=== PATIENT | female | born 1940 | race Caucasian/White ===

== ENCOUNTER 2017-11-20 13:25 | Inpatient (IN) | payer OTHER ==
[~2017-11-20] VITALS: Ht 162.6 cm; Wt 73.6 kg
--- NOTE | 2017-11-20 14:45 | ED SYNCOPE COMPLAINT ---
See Addendum History of Present Illness General Chief Complaint: Syncope and Near-Syncope Stated Complaint: SYNCOPE, LIGHTHEADED Source: patient, family Exam Limitations: no limitations Vital Signs & Intake/Output Vital Signs & Intake/Output Vital Signs Date Time Temp Pulse Resp B/P B/P Pulse O2 O2 Flow FiO2 Mean Ox Delivery Rate 11/20 2000 98.2 86 16 129/80 97 Room Air 11/20 1724 78 172/91 11/20 1723 96.2 78 18 172/91 98 Room Air 11/20 1511 98.3 80 18 142/81 96 Room Air 11/20 1415 98.5 80 16 144/88 97 Room Air Allergies Coded Allergies: Iodinated Contrast- Oral and IV Dye (Severe, VOMITING 11/20/17) Reconcile Medications Amlodipine Besylate 5 MG TABLET 1 TAB PO DAILY HEART (Reported) Levothyroxine Sodium 50 MCG TABLET 1 TAB PO DAILY AC THYROID (Reported) Lisinopril 20 MG TABLET 1 TAB PO DAILY HEART (Reported) Triage Note: 77 Y/O FEMALE C/O ? SYNCOPE THIS MORNING. STATES SHE WAS IN BATHROOM WHEN SHE HAD DIFFUSE ABDOMINAL PAIN AND CRAMPING, THEN FELT "CLAMMY" AND "I THINK I PASSED OUT". WAS GUIDED TO GROUND BY . PT STATES SHE CONTINUES TO FEEL "FOGGY". DENIES ACUTE PAIN,. DENIES N/V/D. EKG COMPLETED PRIOR TO TRIAGE TAKEN TO ROOM 1 FOR EVAL Triage Nurses Notes Reviewed? yes Timing: no prior history Precipitating Factors: diaphoresis Context: sitting on toilet Loss of Consciousness: brief (seconds) HPI: Patient is a 77-year-old female with history of hypertension, hypothyroid presenting to the emergency department with chief complaint syncopal episode that happened just prior to arrival. She was urinating on the toilet when she experienced intense abdominal pain which then caused diaphoresis and her to pass out. She reports that she lost consciousness for a few seconds and fell to the floor. Her tried to catch her without success. Patient presents she feels "foggy". Denies visual changes. Denies any chest pain or palpitations prior to onset of syncope. No history of similar symptoms in the past. Patient denies any nausea or vomiting. Patient denies any current abdominal pain. She reports that she's been dealing with abdominal pain for several months but has not told her primary care physician about it. Just has remote history of left breast cancer. Denies any recent changes with prescription lenses. She reports that she has been feeling "under the weather" for several months with abdominal pain and just not feeling like herself. Denies any recent coughing or congestion. Denies any burning with urination frequency or urgency. No recent diarrhea. (Emilia Antoine) Past History Travel History Traveled to [place] past 21 day No Medical History Any Pertinent Medical History? see below for history Neurological: NONE EENT: NONE Cardiovascular: hypertension, hyperlipidemia Respiratory: NONE Gastrointestinal: NONE Hepatic: NONE Renal: NONE Musculoskeletal: NONE Psychiatric: NONE Endocrine: hypothyroidism Cancer(s): breast cancer Surgical History Surgical History: non-contributory Psychosocial History What is your primary language Micronesian Tobacco Use: Never used Family History Hx Contributory? No (Emilia Antoine) Review of Systems Review of Systems Constitutional: Reports: diaphoresis. Comments Review of systems: See HPI, All other systems negative. Constitutional, no chills fever or weight loss HEENT: No visual changes no sore throat no congestion Cardiovascular: No chest pain ,palpitation , orthopnea or ankle swelling Skin, no jaundice no rashes Respiratory: No dyspnea cough sputum or hemoptysis GI: No nausea no vomiting : No dysuria No hematuria Muscle skeletal: no back pain, no neck pain, Neurologic: No numbness Psych: No stress anxiety or depression,. Heme/endocrine: No bruising no bleeding no polyuria or polydipsia Immunology: No splenectomy or history of AIDS (Emilia Antoine) Physical Exam Physical Exam General Appearance: well developed/nourished, no apparent distress, alert, awake , comfortable Cranial Nerves: cranial nerves II through XII grossly intact. Comments: Well-developed well-nourished person in no acute distress HEENT: Normal EENT exam, extraocular motion intact, no nystagmus. Pupils equally round and reactive to light and accommodation. Nose is atraumatic. External auditory canal and Tympanic membranes clear. Pharynx normal. No swelling or edema. No hemotympanum noted bilaterally. No pain to palpation over entire scalp. No bogginess or step off deformities palpated. Neck: Supple, no lymphadenopathy, normal range of motion without pain or tenderness, no cervical or paraspinal muscle tenderness on exam. Back: Nontender, negative straight leg raise bilaterally. Cardiovascular: Regular rate and rhythms, no murmurs appreciated to auscultation Respiratory: Chest nontender. No respiratory distress.breath sounds clear to auscultation bilaterally Abdomen: Soft, nontender nondistended, no appreciable organomegaly. Normal bowel sounds. No ascites, no rebound or guarding. Extremity: No edema, no calf tenderness to palpation, normal and equal pulses. Full range of motion of upper extremities without difficulties or pain. 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 Muscular strength in the lower extremity is located on the stretcher is 5 out of 5. Neuro: Alert oriented x3, motor sensory normal, cranial nerves II through XII grossly intact. Patellar reflexes are 2+ bilaterally. Skin: No appreciable rash on exposed skin, skin is warm and dry. Psych: Mood and affect is normal, memory and judgment is normal. Core Measures ACS in differential dx? Yes CVA/TIA Diagnosis: No Sepsis Present: No Sepsis Focused Exam Completed? No (Jaimee SILVERMAN,Emilia) Progress Differential Diagnosis: orthostatic hypotension, vasovagal episode, and actually abnormality,, TIA, CVA Plan of Care: Orders Procedure Date/time Status Heart Healthy Diet 11/21 B Active MAGNESIUM 11/21 0600 Active CBC WITHOUT DIFFERENTIAL 11/21 0600 Active BASIC ELECTROLYTES PLUS BUN&CR 11/21 0600 Active Regular Diet 11/20 D Complete Pathway - chart 11/20 1923 Active House Staff 11/20 1923 Active Patient Data 11/20 1748 Active ED Holding Orders 11/20 1733 Active Admit to inpatient 11/20 1733 Active Code Status 11/20 1733 Active Add-on Test (ER Only) 11/20 1658 Active TSH REFLEX 11/20 1452 Active GLYCOSYLATED HGB 11/20 1452 Active VITAMIN B12 11/20 1452 Active Add-on Test (ER Only) 11/20 1445 Active MISTAKE 11/20 1445 Active Telemetry/Pictures Editor 11/20 1445 Active Intake & Output 11/20 1443 Active TROPONIN LEVEL 11/20 1420 Active PARTIAL THROMBOPLASTIN TIME 11/20 1420 Complete PROTHROMBIN TIME 11/20 1420 Complete LACTIC ACID 11/20 1420 Active D-DIMER 11/20 1420 Complete COMPREHENSIVE METABOLIC PANEL 11/20 1420 Active CBC WITHOUT DIFFERENTIAL 11/20 1420 Complete EKG 11/20 1327 Active Lab Add-on Test 11/20 UNK Active VTE Mechanical Prophylaxis 11/20 UNK Active Vital Signs 11/20 UNK Active Current Medications Sig/Mike Start time Last Medication Dose Stop Time Status Admin Enoxaparin Sodium 40 MG DAILY 11/21 0900 AC (Lovenox) Acetaminophen 650 MG Q6P PRN 11/20 1915 AC (Tylenol) Laboratory Tests 11/20/17 1452: Anion Gap 11, Estimated GFR > 60, BUN/Creatinine Ratio 31.7 H, Glucose 106 H, Hemoglobin A1c Pending, Lactic Acid 0.6 L, Calcium 9.0, Total Bilirubin 0.4, AST 11 L, ALT 19, Alkaline Phosphatase 75, Troponin I < 0.01, Total Protein 6.6 , Albumin 3.6, Globulin 3.0, Albumin/Globulin Ratio 1.2, Vitamin B12 Pending, TSH &T3 &Free T4 Intrp 2.980, PT 12.1, INR 1.11, APTT 28, D-Dimer High Sensitivty < 200, CBC w Diff NO MAN DIFF REQ, RBC 4.11 L, MCV 86.0, MCH 28.7, MCHC 33.4, RDW 13.6, MPV 9.9, Gran % 79.4 H, Lymphocytes % 14.3 L, Monocytes % 5.5, Eosinophils % 0.6, Basophils % 0.2, Absolute Granulocytes 8.0 H, Absolute Lymphocytes 1.4, Absolute Monocytes 0.6, Absolute Eosinophils 0.1, Absolute Basophils 0 11/20/2017 5:50:48 PM patient is well-appearing at this time resting comfortably. Patient still asymptomatic. Patient and family members informed of all lab results and imaging study results. Due to the unclear nature of syncopal event patient will be admitted to telemetry for syncope. Arvind Ramírez DO spoke with Dr. Miller. Orthostatics are negative at this time. Diagnostic Imaging: Viewed by Me: Radiology Read, CT Scan. Discussed w/RAD: Radiology Read, CT Scan. Radiology Impression: PATIENT: MIRIAM JOHNSON PRESENT AGE: 77 PATIENT ACCOUNT NO: [id number] : 39 LOCATION: [facility] ORDERING PHYSICIAN: Emilia SILVERMAN SERVICE DATE: 11/20/17 EXAM TYPE: RAD - XRY-PORTABLE CHEST XRAY EXAMINATION: XR PORTABLE CHEST CLINICAL INFORMATION: Syncope. Question of cardiomegaly. COMPARISON: Chest x-ray 03/21/2013 TECHNIQUE: Portable frontal view of the chest was obtained. 2:48 PM FINDINGS: The heart size is normal. The cardiac and mediastinal contours are unchanged. There is vascular wall calcifications of aortic arch. There is no acute abnormality. There is no pulmonary vascular congestion. Lungs are clear. There is no pleural effusion or pneumothorax. There are surgical clips in the left axilla. IMPRESSION: No acute abnormality of the chest. The heart size is normal. DICTATED BY: Jeremy Artis MD DATE/TIME DICTATED:11/20/171527 SUPERVISORY TRAINING SPECIALIST :MÓNICA DATE/TIME TRANSCRIBED:11/20/171527 CONFIDENTIAL, DO NOT COPY WITHOUT APPROPRIATE AUTHORIZATION. <Electronically signed in Other Vendor System> SIGNED BY: Jeremy Artis MD 11/20/17 153, PATIENT: MIRIAM JOHNSON PRESENT AGE: 77 PATIENT ACCOUNT NO: [id number] : LOCATION: [facility] ORDERING PHYSICIAN: Emilia SILVERMAN SERVICE DATE: 11/20/17 EXAM TYPE: CAT - CT CERV SPINE WO IV CONTRAST; CT HEAD WO IV CONTRAST EXAMINATION: CT HEAD AND CERVICAL SPINE. CLINICAL INFORMATION: Fall with head strike. Evaluate for acute intracranial hemorrhage. COMPARISON: No relevant prior imaging. TECHNIQUE: Coal Passer images were obtained. CT acquisition of the head and cervical spine was performed without intravenous administration of contrast. Data was reformatted into multiplanar images at the acquisition workstation. DLP: 910.97 mGy-cm. FINDINGS: Head: There is no acute intracranial hemorrhage or abnormal extra-axial collection. No intracranial mass effect or midline shift. Lateral and third ventricles are normal. No hydrocephalus. Rodríguez- white matter differentiation is grossly preserved and there is no evidence of acute territorial infarct. The calvarium and skull base are intact. Mastoid air cells and middle ear cavities are well aerated. Visualized paranasal sinuses are well aerated. Cervical spine: There is nonspecific straightening of the cervical lordosis. Alignment is otherwise normal. Vertebral heights are preserved. There is no acute fracture. No abnormal prevertebral soft tissue swelling. There is slight loss of intervertebral disc height with associated disc osteophyte spurring at levels of C5-C6 and C6-C7. No canal compromise. No substantial bony neuroforaminal encroachment. Coarse tonsillar crypt calcifications are noted. Small amount of calcified atherosclerotic plaque is also visualized at the carotid bifurcations. Lung apices are clear. IMPRESSION: Head: No acute cranial hemorrhage. Cervical spine: No acute cervical spine fracture. DICTATED BY: Adam Lopez MD DATE/TIME DICTATED:11/20/171546 SUPERVISORY TRAINING SPECIALIST: MÓNICA DATE/TIME TRANSCRIBED:11/20/171546 CONFIDENTIAL, DO NOT COPY WITHOUT APPROPRIATE AUTHORIZATION. <Electronically signed in Other Vendor System> SIGNED BY: Adam Lopez MD 11/20/17 1558 Initial ED EKG: sinus rhythm at 78 per minute, probable anteroseptal infarct Prior EKG: unchanged (Emilia Antoine) Departure Departure Time of Disposition: 1727 Disposition: HOME OR SELF CARE Condition: Stable Clinical Impression Primary Impression: Syncope Qualifiers: Syncope type: unspecified Qualified Code: R55 - Syncope and collapse Referrals: Prateek Miller MD (PCP/Family) Departure Forms: Customer Survey General Discharge Information Admission Note Spoke With: Prateek Miller MD Documentation of Exam: Documentation of any treatments & extenuating circumstances including Concerns Regarding Discharge (functional status, medication knowledge or non-compliance, living conditions, etc.) that warrant an admission rather than observation: Patient requiring telemetry monitoring, serial EKGs and troponins, cardiology consultation, patient may require carotid Dopplers, discharge at this time is medically harmful due to likely have worsening symptoms or symptoms Again. Patient may need neurology consultation. May need Holter monitor upon discharge. Pending CT abdomen at this time. (Emilia Antoine) PA/FIELD GAUGER Co-Sign Statement Statement: ED Attending supervision documentation- [x] I saw and evaluated the patient. I have also reviewed all the pertinent lab results and diagnostic results. I agree with the findings and the plan of care as documented in the PA's/FIELD GAUGER's documentation. [] I have reviewed the ED Record and agree with the PA's/FIELD GAUGER's documentation. [] Additions or exceptions (if any) to the PAs/FIELD GAUGER's note and plan are summarized below: [] Patient seen and examined. Near syncopal episode. Admission to telemetry (Arvind Ramírez DO) Critical Care Note Critical Care Note Critical Care Time: 30-74 min (Jaimee SILVERMAN,Emilia)
[2017-11-20] MEDS ORDERED: LEVOTHYROXINE50 MCG PO (15:00)
[2017-11-20] MEDS ORDERED: AMLODIPINE BESYL5 M1 PO (15:00)
[2017-11-20] MEDS ORDERED: LISINOPRIL20 M1 PO (15:01)
[2017-11-20 15:10] LABS: ABSOLUTE BASOPHIL COUNT 0 /CUMM (0.0-0.2); ABSOLUTE EOSINOPHIL COUNT 0.1 /CUMM (0.0-0.7); ABSOLUTE LYMPH COUNT 1.4 /CUMM (1.2-3.4); ABSOLUTE MONOCYTE COUNT 0.6 /CUMM (0.10-0.60); BASOPHIL % 0.2 % (0.0-2.0); EOSINOPHIL % 0.6 % (0-5); GRANULOCYTE % 79.4 % (42.2-75.2); HEMATOCRIT 35.4 % (37-47); MEAN CORPUSCULAR HGB 28.7 PG (27.0-31.0); MEAN CORPUSCULAR HGB CONC 33.4 G/DL (33.0-37.0); MEAN PLATELET VOLUME 9.9 FL (7.4-10.4); PLATELET COUNT 222 /CUMM (130-400); PT 12.1 SEC (9.4-12.5); PTT 28 SEC (25-37); RBC DISTRIBUTION WIDTH 13.6 % (11.5-14.5); RED BLOOD CELL CT 4.11 /CUMM (4.20-5.40); WHITE BLOOD CELL COUNT 10.1 /CUMM (4.8-10.8)
--- NOTE | 2017-11-20 15:33 | RADIOLOGY REPORT ---
EXAMINATION: XR PORTABLE CHEST CLINICAL INFORMATION: Syncope. Question of cardiomegaly. COMPARISON: Chest x-ray 03/21/2013 TECHNIQUE: Portable frontal view of the chest was obtained. 2:48 PM FINDINGS: The heart size is normal. The cardiac and mediastinal contours are unchanged. There is vascular wall calcifications of aortic arch. There is no acute abnormality. There is no pulmonary vascular congestion. Lungs are clear. There is no pleural effusion or pneumothorax. There are surgical clips in the left axilla. IMPRESSION: No acute abnormality of the chest. The heart size is normal.
--- NOTE | 2017-11-20 15:58 | CT SCAN REPORT ---
EXAMINATION: CT HEAD AND CERVICAL SPINE. CLINICAL INFORMATION: Fall with head strike. Evaluate for acute intracranial hemorrhage. COMPARISON: No relevant prior imaging. TECHNIQUE: Manufactured Buildings Repairer images were obtained. CT acquisition of the head and cervical spine was performed without intravenous administration of contrast. Data was reformatted into multiplanar images at the acquisition workstation. DLP: 910.97 mGy-cm. FINDINGS: Head: There is no acute intracranial hemorrhage or abnormal extra-axial collection. No intracranial mass effect or midline shift. Lateral and third ventricles are normal. No hydrocephalus. Rodríguez-white matter differentiation is grossly preserved and there is no evidence of acute territorial infarct. The calvarium and skull base are intact. Mastoid air cells and middle ear cavities are well aerated. Visualized paranasal sinuses are well aerated. Cervical spine: There is nonspecific straightening of the cervical lordosis. Alignment is otherwise normal. Vertebral heights are preserved. There is no acute fracture. No abnormal prevertebral soft tissue swelling. There is slight loss of intervertebral disc height with associated disc osteophyte spurring at levels of C5-C6 and C6-C7. No canal compromise. No substantial bony neuroforaminal encroachment. Coarse tonsillar crypt calcifications are noted. Small amount of calcified atherosclerotic plaque is also visualized at the carotid bifurcations. Lung apices are clear. IMPRESSION: Head: No acute cranial hemorrhage. Cervical spine: No acute cervical spine fracture.
--- NOTE | 2017-11-20 17:56 | CT SCAN REPORT ---
EXAMINATION: CT ABDOMEN AND PELVIS WITHOUT CONTRAST CLINICAL INFORMATION: Abdominal pain. COMPARISON: CT scan abdomen pelvis 08/08/2015 TECHNIQUE: Multidetector volumetric imaging was performed from the superior aspect of the liver through the pubic symphysis. Sagittal and coronal reformatted images were obtained on the technologist's workstation. DLP: 343.53 mGy-cm FINDINGS: LUNG BASES: The visualized lung bases are unremarkable. LIVER, GALLBLADDER, AND BILIARY TREE: Stable bilobed cyst in the upper right lobe of liver measuring 2.9 cm in diameter. There are multiple additional smaller scattered cysts in the liver as well that are stable. No suspicious liver lesion. Multiple calcified gallstones within the gallbladder. There is no bile duct dilatation. PANCREAS: Stable linear calcification in the mid body of the pancreas. No inflammation. No acute change of the pancreas. No pancreatic duct dilatation or cystic change. SPLEEN: Unremarkable. ADRENAL GLANDS: Unremarkable. KIDNEYS AND URETERS: Stable cyst in the right kidney. Largest measuring 6.6 cm at the upper pole. There are multiple parapelvic cysts in the left kidney. No renal or ureteral calculi. No hydronephrosis. BLADDER: Unremarkable. GASTROINTESTINAL TRACT: There is severe diverticulosis of the left colon and sigmoid. There are scattered diverticula in the right colon. There is no diverticulitis. There is no bowel wall thickening or edema. There is no bowel obstruction. There is a moderate to large-volume of stool throughout colon. The appendix is normal. The small bowel loops are unremarkable. There is a small hiatal hernia. ABDOMINAL WALL: No significant hernia is appreciated. LYMPH NODES: Normal. VASCULAR: Unremarkable. PELVIC VISCERA: The uterus is absent. There is no pelvic abnormality. OSSEOUS STRUCTURES: Degenerative spondylosis spine with multilevel disc height narrowing and endplate spurring and facet joint arthrosis. There is a vacuum disc phenomena L4-L5 with subchondral sclerosis of the endplates. There is a vertebral hemangioma in the body of the L4 vertebrae. IMPRESSION: 1. No acute abnormality CT scan abdomen pelvis. 2. There is marked diverticulosis of the colon but there is no acute abnormality of the bowel. 3. Cholelithiasis. 4. Renal and hepatic cysts.
--- NOTE | 2017-11-20 18:39 | History & Physical ---
Sunday BRUSH,José Miguel 11/20/17 3599: General Information and HPI History of Present Illness: 77-year-old woman with past medical history of hypertension, hypothyroidism, and breast cancer brought in by ambulance for evaluation after "passing out". Patient reports waking up this morning in her normal state of health where she went about her day and return home around noon and went to use the restroom. While urinating she developed acute onset 10/10 sharp diffuse abdominal pain. She felt "woozy" and clammy and suddenly "passed out". Her reportedly helped her to the ground; she did not hit her head or have any witnessed seizure activity. She awoke a short time later without any confusion. She denied any nausea, vomiting, or diarrhea during this episode. She was given an aspirin from a family member and taken to the [place] ED for further evaluation. Presently patient states that she "feels fine" and would like to go home. She denies any new or persistent complaints. Review of systems She otherwise denies any headache, fever, chills, light headedness, dizziness, blurred/double vision, chest pain, palpitations, heartburn, shortness breath, cough, nausea, vomiting, diarrhea, bowel/bladder issues. Allergies/Medications Allergies: Coded Allergies: Iodinated Contrast- Oral and IV Dye (Severe, VOMITING 11/20/17) Home Med list Amlodipine Besylate 5 MG TABLET 1 TAB PO DAILY HEART (Reported) Levothyroxine Sodium 50 MCG TABLET 1 TAB PO DAILY AC THYROID (Reported) Lisinopril 20 MG TABLET 1 TAB PO DAILY HEART (Reported) Past History Travel History Traveled to [place] past 21 day No Medical History Neurological: NONE EENT: NONE Cardiovascular: hypertension, hyperlipidemia Respiratory: NONE Gastrointestinal: NONE Hepatic: NONE Renal: NONE Musculoskeletal: NONE Psychiatric: NONE Endocrine: hypothyroidism Cancer(s): breast cancer Surgical History Surgical History: non-contributory Past Family/Social History Psychosocial History Where do you live? Home Review of Systems Review of Systems Constitutional: Reports: see HPI. Exam & Diagnostic Data Last 24 Hrs of Vital Signs/I&O Vital Signs Date Time Temp Pulse Resp B/P B/P Pulse O2 O2 Flow FiO2 Mean Ox Delivery Rate 11/20 1724 78 172/91 11/20 1723 96.2 78 18 172/91 98 Room Air 11/20 1511 98.3 80 18 142/81 96 Room Air 11/20 1415 98.5 80 16 144/88 97 Room Air Intake & Output 11/20 1600 11/20 0800 11/20 0000 Intake Total 0 Output Total Balance 0 Intake, Oral 0 Patient 70.76 kg Weight Weight Reported by Patient Measurement Method Physical Exam General Appearance Alert, Oriented X3, Cooperative, No Acute Distress Skin No Rashes, No Breakdown, No Significant Lesion Skin Temp/Moisture Exam: Warm/Dry Sepsis Skin Exam (color): Normal for Ethnicity HEENT Atraumatic, PERRLA, EOMI, Mucous Membr. moist/pink Neck Supple, No JVD, No thryomegaly Cardiovascular Regular Rate, Normal S1, Normal S2, No Murmurs Lungs Clear to Auscultation, Normal Air Movement Abdomen Normal Bowel Sounds, Soft, No Tenderness, No Hepatospenomegaly, No Masses Neurological Normal Speech, Strength at 5/5 X4 Ext, Normal Tone, Sensation Intact, Cranial Nerves 3-12 NL Extremities No Clubbing, No Cyanosis, No Edema, Normal Pulses, No Tenderness/ Swelling Vascular Normal Pulses, Pulses Symmetrical Last 24 Hrs of Labs/[place]: Laboratory Tests 11/20/17 1452: Anion Gap 11, Estimated GFR > 60, BUN/Creatinine Ratio 31.7 H, Glucose 106 H, Lactic Acid 0.6 L, Calcium 9.0, Total Bilirubin 0.4, AST 11 L, ALT 19, Alkaline Phosphatase 75, Troponin I < 0.01, Total Protein 6.6, Albumin 3.6, Globulin 3.0, Albumin/Globulin Ratio 1.2, TSH &T3 &Free T4 Intrp 2.980, PT 12.1, INR 1.11, APTT 28, D-Dimer High Sensitivty < 200, CBC w Diff NO MAN DIFF REQ, RBC 4.11 L, MCV 86.0, MCH 28.7, MCHC 33.4, RDW 13.6, MPV 9.9, Gran % 79.4 H, Lymphocytes % 14.3 L, Monocytes % 5.5, Eosinophils % 0.6, Basophils % 0.2, Absolute Granulocytes 8.0 H, Absolute Lymphocytes 1.4, Absolute Monocytes 0.6, Absolute Eosinophils 0.1, Absolute Basophils 0 Assessment/Plan Assessment: 77-year-old woman with multiple medical problems seen for evaluation after "passing out" after using the restroom. ED course -Vitals: Temp 96.2-98.5, HR 78-80, RR 16-18, SBP 142-172, O2 96-98% on room air -CBC: WBC 10.1, hemoglobin 11.8, hematocrit 35.4, platelet 222-BMP: Sodium 142, potassium 3.8, chloride 104, CO2 27, urea 19, creatinine 0.6, anion gap 11, glucose 106 -LFT: Within normal limits -Miscellaneous: Lactic acid 0.6, troponin I <0.01, TSH are 2.98, d-dimer <200, INR 1.1 -EKG: Sinus rhythm, HR 78, VA 156, QTC 447 -CT head/cervical spine without IV contrast: * Head:No acute cranial hemorrhage. * Cervical spine:No acute cervical spine fracture. -CXR: No acute abnormality of the chest -CT abdomen/pelvis without IV contrast: 1. No acute abnormality CT scan abdomen pelvis. 2. There is marked diverticulosis of the colon but there is no acute abnormality of the bowel. 3. Cholelithiasis. 4. Renal and hepatic cysts. Given patient's presentation after using the restroom and acute onset abdominal pain causing her to subsequently pass out she most likely suffered a vasovagal episode secondary to emptying of her bladder with concurrent Valsalva. On exam and lab studies she does not appear to be dehydrated but reports decreased oral intake recently due to her "hiatal hernia". Patient will need to follow-up with her small equipment operator Esa Garrison MD as an outpatient for further evaluation of this and potentially a repeat colonoscopy. Multiple imaging studies were unremarkable ruling out dangerous condition such as infection or vascular dissection. For further evaluation of patient's syncopal episode she is being admitted to the telemetry floor. Problem list -Loss of consciousness, probable vasovagal syncope -Marked colonic diverticulosis -Hypertension -Hypothyroidism Plan -Admit to telemetry -Check orthostatic vitals -Continue home meds amlodipine, lisinopril, and levothyroxine -Check B12 and HbA1c levels -Pain control with acetaminophen -Regular diet -DVT prophylaxis with Lovenox -Full code As Ranked By This Provider Problem List: 1. Syncope Qualifiers Syncope type: unspecified Qualified Code: R55 - Syncope and collapse Core Measures/Misc (04/26) Acute Coronary Syndrome ACS Diagnosis: No Congestive Heart Failure Congestive Heart Failure Diagnosis No Cerebrovascular Accident CVA/TIA Diagnosis: No VTE (View Protocol) VTE Risk Factors Age>40 No Mechanical VTE Prophylaxis d/t N/A MechProphylax Ordered No VTE Pharm Prophylaxis d/t NA PharmProphylax ordered Sepsis (View protocol) Sepsis Present: No Angela BRUSH,Prateek 11/20/171941: Attending MD Review Statement Attending Statement Attending MD Statement: examined this patient, discuss w/resident/PA/TABLE WORKER, agreed w/resident/PA/TABLE WORKER, discussed with family, reviewed EMR data (avail), discussed with nursing, discussed with case mgmt, reviewed images, amended to note Attending Assessment/Plan: examined independently in the emergency room Agree with the above This is a lady with the hypothyroidism after a previous thyroidectomy, hypertension, 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 history is as above. She has had extensive workup in the emergency room so for each been unrevealing. Issues include Syncope probably neurocardiogenic syncope with post-micturition Recent abdominal discomfort and a lady with hiatal hernia with postprandial abdominal discomfort. No clinical evidence suggestive of ischemic bowel disease. Patient does not have any significant peripheral vascular disease. 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 Other workup needs to be done RECOMMENDATION Admitted to telemetry Check vital signs Hold blood pressure medications if her blood pressure is less than 120 and resume outpatient meds slowly Continue levothyroxine Blood work as ordered above Adequate pain control Outpatient GI evaluation Probable neurological evaluation the future for burning of the leg continues
[2017-11-20 21:05] VITALS: BP 140/82
[2017-11-21 06:30] VITALS: BP 140/68
[2017-11-21 08:04] VITALS: BP 140/68
[2017-11-21 08:04] LABS: ABSOLUTE BASOPHIL COUNT 0 /CUMM (0.0-0.2); ABSOLUTE EOSINOPHIL COUNT 0.1 /CUMM (0.0-0.7); ABSOLUTE GRANULOCYTE CT 3.8 /CUMM (1.4-6.5); ABSOLUTE LYMPH COUNT 1.9 /CUMM (1.2-3.4); ABSOLUTE MONOCYTE COUNT 0.5 /CUMM (0.10-0.60); BASOPHIL % 0.5 % (0.0-2.0); EOSINOPHIL % 1.6 % (0-5); GRANULOCYTE % 60.2 % (42.2-75.2); HEMATOCRIT 33.9 % (37-47); MEAN CORPUSCULAR HGB 28.9 PG (27.0-31.0); MEAN CORPUSCULAR HGB CONC 33.6 G/DL (33.0-37.0); MEAN CORPUSCULAR VOLUME 85.8 FL (81.0-99.0); MEAN PLATELET VOLUME 10.2 FL (7.4-10.4); PLATELET COUNT 219 /CUMM (130-400); RBC DISTRIBUTION WIDTH 13.9 % (11.5-14.5); RED BLOOD CELL CT 3.95 /CUMM (4.20-5.40); WHITE BLOOD CELL COUNT 6.4 /CUMM (4.8-10.8)
--- NOTE | 2017-11-21 10:13 | PN- Housestaff ---
[facility] Subjective Follow-up For: Syncope Subjective: No overnight events. Patient remained afebrile but appears seen and examined this morning. She denied any chest pain, short of breath, lightheadedness, nausea, vomiting, chills, fever, abdominal pain. Review of Systems Constitutional: Denies: chills, fever. EENTM: Reports: no symptoms. Cardiovascular: Denies: chest pain, palpitations. Respiratory: Denies: cough, short of breath, sputum production. Gastrointestinal: Denies: abdominal pain, constipation, diarrhea, nausea. Genitourinary: Reports: no symptoms. Musculoskeletal: Reports: no symptoms. Neurological/Psychological: Reports: no symptoms. Objective Last 24 Hrs of Vital Signs/I&O Vital Signs Date Time Temp Pulse Resp B/P B/P Pulse O2 O2 Flow FiO2 Mean Ox Delivery Rate 11/21 0804 69 140/68 11/21 0803 69 140/68 11/21 0630 98.3 69 18 140/68 97 11/20 2105 97.6 72 22 140/82 99 Room Air 11/20 2001 98.2 86 16 129/80 97 Room Air 11/20 1724 78 172/91 11/20 1723 96.2 78 18 172/91 98 Room Air 11/20 1511 98.3 80 18 142/81 96 Room Air 11/20 1415 98.5 80 16 144/88 97 Room Air Intake & Output 11/21 1600 11/21 0800 11/21 0000 Intake Total 600 200 Output Total Balance 600 200 Intake, Oral 600 200 Patient 162 lb Weight Weight Bed scale Measurement Method Physical Exam General Appearance: Alert, Oriented X3, Cooperative Skin: No Rashes Skin Temp/Moisture Exam: Warm/Dry Sepsis Skin Exam (color): Normal for Ethnicity HEENT: Atraumatic, PERRLA, EOMI Neck: Supple Cardiovascular: Normal S1, Normal S2 Lungs: Clear to Auscultation Abdomen: Soft, No Tenderness Neurological: Normal Speech, Strength at 5/5 X4 Ext, Normal Tone Extremities: No Edema Assessment/Plan Assessment: 77 YO F with PMH of hypothyroidism s/p thyroidectomy, HTN, HLD, 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 We are following the patient on telemetry floor for following problems: Syncope: -Possibly vasovagal syncope -Her troponin EKG remained negative -We will monitor her on telemetry floor to rule out any arrhythmia or cardiac condition that's causing syncope. -Orthostatic vitals -Cardiology consult -Echocardiogram History of hypertension and hyperlipidemia: -Continue amlodipine and lisinopril -Not on any medication for hyperlipidemia History of hypothyroidism: -Continue levothyroxine DVT prophylaxis: Mechanical and Lovenox CODE STATUS: Full code Problem List: 1. Syncope Pain Ratin Pain Location: none Pain Goal: Remain pain free Pain Plan: pain pathway Tomorrow's Labs & Rationales: kathryn Miller MD,[facility] 11/21/17 1429: Attending MD Review Statement Attending Statement Attending MD Statement: examined this patient, discuss w/resident/PA/OPERATOR TECHNICIAN, agreed w/resident/PA/OPERATOR TECHNICIAN, discussed with family, reviewed EMR data (avail), discussed with nursing, discussed with case mgmt, reviewed images, amended to note Attending Assessment/Plan: This is a lady with the hypothyroidism after a previous thyroidectomy, hypertension, 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 She has had extensive workup in the emergency room so for each been unrevealing. Issues include * Syncope probably neurocardiogenic syncope with post-micturition / ekg normal, trop nrmal and no ekg changes * Recent abdominal discomfort and a lady with hiatal hernia with postprandial abdominal discomfort. No clinical evidence suggestive of ischemic bowel disease. Patient does not have any significant peripheral vascular disease. 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 Other workup needs to be done * b12 def noted RECOMMENDATION Admitted to telemetry Check vital signs REsume her out pt bp meds Continue levothyroxine Outpatient GI evaluation, pt will make her appt with Dr. Garrison Probable neurological evaluation the future for burning of the leg continues Start b12 2000 units daily
--- NOTE | 2017-11-21 14:18 | Patient Discharge Instructions ---
Discharge Instructions General Discharge Information You were seen/treated for: Syncope Watch for these problems: Chest pain, lightheadedness, blood in stool, blood in vomitus, shortness of breath and dysuria If she experience any of these symptoms please come to ED or call your primary care physician Special Instructions: Follow-up with her primary care physician in one week. Follow-up with GI as outpatient in 1 week. Diet Recommended Diet: Heart Healthy Activity Activity Self Limited: Yes Acute Coronary Syndrome Inclusion Criteria At DC or during hospital stay patient has or had the following: ACS DIAGNOSIS No Discharge Core Measures Meds if any: Prescribed or Continued at Discharge Meds if any: NOT Prescribed or Continued at Discharge Congestive Heart Failure Inclusion Criteria At DC or during hospital stay patient has or had the following: CHF DIAGNOSIS No Discharge Core Measures Meds if any: Prescribed or Continued at Discharge Meds if any: NOT Prescribed or Continued at Discharge Cerebrovascular accident Inclusion Criteria At DC or during hospital stay patient has or had the following: CVA/TIA Diagnosis No Discharge Core Measures Meds if any: Prescribed or Continued at Discharge Meds if any: NOT Prescribed or Continued at Discharge Venous thromboembolism Inclusion Criteria VTE Diagnosis No VTE Type NONE VTE Confirmed by (Test) NONE Discharge Core Measures - Per Current guidelines, there needs to be overlap - treatment for the first 5 days of Warfarin therapy. - If discharged on Warfarin prior to 5 days of - overlap therapy, the patient will need to be - assessed for post discharge needs including - *Post discharge parental anticoagulation - *Warfarin and/or parental anticoagulation education - *Follow up date to check INR post discharge At least 5 days overlap therapy as Inpatient No Meds if any: Prescribed or Continued at Discharge Note: Overlap Therapy is Warfarin and Anticoagulant Meds if any: NOT Prescribed or Continued at Discharge
--- NOTE | 2017-11-21 14:19 | Discharge Summary ---
Visit Information Visit Dates Admission Date: 11/20/17 Discharge Date: 11/21/17 Hospital Course Course Attending Physician: Prateek Miller MD Primary Care Physician: Prateek Miller MD. 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 ED course: Vitals: Temperature 98.5, pulse 80, respiratory rate 16, blood pressure 144/88, oxygen saturation 97% on room air Labs: WBC count 10.1, hemoglobin 11.8, hematocrit 35.4, platelet count 222, sodium 142, potassium 3.8, BUN 19, creatinine 0.9, lactic acid 0.6, BUNs/ creatinine ratio 31.7, AST 11, ALT 19 Syncope: Probably due to vasovagal syncopal. Troponin and EKG were done in ED that remained negative. Patient's CT scan head was done to rule out any intracranial pathology that was negative. Patient was admitted on telemetry floor and monitored. Any possibility of arrhythmias that can cause her seen cough was ruled out. Patient was instructed to follow Dr. Garrison after the discharge as recommended by her primary care physician. History of hypertension and hyperlipidemia: Continued amlodipine and lisinopril. Patient is not on any statins. History of hypothyroidism: Continued levothyroxine DVT prophylaxis: Mechanical and Lovenox CODE STATUS: Full code Allergies: Coded Allergies: Iodinated Contrast- Oral and IV Dye (Severe, VOMITING 11/20/17) Pertinent Lab Results: Cervical spine CT on 11/20/2017; IMPRESSION: Head: No acute cranial hemorrhage. Cervical spine: No acute cervical spine fracture. Chest x-ray on 11/20/17: IMPRESSION: No acute abnormality of the chest. The heart size is normal. Head CT scan on 11/20/2017: IMPRESSION: Head: No acute cranial hemorrhage. Cervical spine: No acute cervical spine fracture. Abdominal/pelvic CT scan on 11/20/17: IMPRESSION: 1. No acute abnormality CT scan abdomen pelvis. 2. There is marked diverticulosis of the colon but there is no acute abnormality of the bowel. 3. Cholelithiasis. 4. Renal and hepatic cysts. WBC of 6.4, hemoglobin 11.4, hematocrit 33.9, platelet count 219, sodium 142, potassium 3.7, BUN 17, creatinine 0.5, troponin less than 0.01 Disposition Summary Disposition Principal Diagnosis: Vasovagal syncope Additional Diagnosis: History of hypertension and hyperlipidemia History of hypothyroidism Discharge Disposition: home or self care Discharge Instructions General Discharge Information Code Status: Full Code Patient's Diet: Heart healthy diet Patient's Activity: Self limited Follow-Up Instructions/Appts: Follow-up with her primary care physician in one week. Follow-up with GI as outpatient in 1 week. Medications at Discharge Discharge Medications: Continue taking these medications: Levothyroxine Sodium (Levothyroxine Sodium) 50 MCG TABLET 1 Tablet ORAL DAILY BEFORE BREAKFAST Qty = 90 Comments: Last Taken: 11/21/17 Time: 0657 Amlodipine Besylate (Amlodipine Besylate) 5 MG TABLET 1 Tablet ORAL DAILY Qty = 90 Comments: Last Taken: 11/21/17 Time: 0804 Lisinopril (Lisinopril) 20 MG TABLET 1 Tablet ORAL DAILY Qty = 90 Comments: Last Taken: 11/21/17 Time: 0803 Copies To: Angela BRUSH,Prateek Vega
--- NOTE | 2017-11-21 15:41 | Cons- Cardiology ---
General Information and HPI Consulting Request Date of Consult: 11/21/17 Requested By: Angela BRUSH,Prateek Vega Reason for Consult: Syncope. Source of Information: patient, family, old records Exam Limitations: no limitations History of Present Illness: Mrs. Yady Villa is a 77-year-old female with a history of remote light tobacco use (<1 ppwk), hypertension, hypothyroidism s/p partial thyroidectomies for "goiter" (1984, 2016) on replacement, breast carcinoma s/p radiation therapy, and remote episodes of syncope, typically brought on by abdominal pain that spontaneously resolved years who presented following a syncopal episode at home. She had been in her usual state of health and early yesterday when shopping, at lunch, returned home the purchased out of the way and at around 12:30 p.m. developed some lower abdominal pain. She felt an urge to void and while seated on the toilet began feeling "hot" with associated weakness, nausea, diaphoresis, etc. and found herself on the bathroom floor. She denied any pre-or post- syncopal chest discomfort, palpitations, shortness of breath, etc. She denies any history of coronary, valvular, dysrhythmic/conduction disease, or cardiomyopathy. Allergies/Medications Allergies: Coded Allergies: Iodinated Contrast- Oral and IV Dye (Severe, VOMITING 11/20/17) Home Med List: Amlodipine Besylate 5 MG TABLET 1 TAB PO DAILY HEART (Reported) Levothyroxine Sodium 50 MCG TABLET 1 TAB PO DAILY AC THYROID (Reported) Lisinopril 20 MG TABLET 1 TAB PO DAILY HEART (Reported) Review of Systems Review of Systems: A 14 point system review was obtained and was noncontributory, other than for the fact that she has headaches, wears glasses, and a cervical osteoarthritis. Past History Travel History Traveled to [place] past 21 day No Medical History Blood Transfusion Hx: No Neurological: NONE EENT: NONE Cardiovascular: hypertension, hyperlipidemia Respiratory: NONE Gastrointestinal: NONE Hepatic: NONE Renal: NONE Musculoskeletal: NONE Psychiatric: NONE Endocrine: hypothyroidism Cancer(s): breast cancer PRODUCTION ARTIST/Reproductive: fibroid Surgical History Surgical History: LEFT BREAST CA BROKEN ELBOW BROKEN SHOULDER, partial thyroidectomies x 2 Psychosocial History Where Do You Live? Home Services at Home: None Smoking Status: Former Smoker Exam & Diagnostic Data Vital Signs and I&O Vital Signs Date Time Temp Pulse Resp B/P B/P Pulse O2 O2 Flow FiO2 Mean Ox Delivery Rate 11/21 0804 69 140/68 11/21 0803 69 140/68 11/21 0630 98.3 69 18 140/68 97 11/20 2105 97.6 72 22 140/82 99 Room Air 11/20 2000 98.2 86 16 129/80 97 Room Air 11/20 1724 78 172/91 11/20 1723 96.2 78 18 172/91 98 Room Air Intake & Output 11/21 1600 11/21 0811/21 0000 11/20 1600 11/20 0811/20 0000 Intake Total 700 600 200 0 Output Total Balance 700 600 200 0 Intake, Oral 700 600 200 0 Patient 162 lb 156 lb Weight Weight Bed scale Reported by Patient Measurement Method Physical Exam: Well-developed, well-nourished elderly female in no acute distress. Vital signs: See above. HEENT: Normocephalic, atraumatic, EOMI, slightly dry mucous membranes. Neck: No JVD, no bruits. Lungs: Clear to auscultation bilaterally. Heart: S1, S2 with soft (grade 1/6) systolic murmur. No gallop or rub. PMI fifth ICS at MCL. Abdomen: Soft, nontender, positive bowel sounds. Extremities: No edema. Diagnostic Data EKG Results 11/21/2017: Sinus rhythm, horizontal axis and abnormal precordial R wave progression that could be secondary to lead placement. CXR Results 11/20/2017: No acute cardiopulmonary process. Other Results Head and Cervical spine CT 11/20/2017: No acute cranial hemorrhage. No acute cervical spine fracture. CT abdomen/pelvis : 1. No acute abnormality CT scan abdomen pelvis. 2. There is marked diverticulosis of the colon but there is no acute abnormality of the bowel. 3. Cholelithiasis. 4. Renal and hepatic cysts. Assessment/Plan Assessment/Plan [id number] w/ hx of remote light tobacco use, hypothyroidism s/p partial thyroidectomies for "goiter" (1984, 2016) on replacement, breast ca s/p radiation therapy, and remote episodes of syncope, typically brought on by abdominal pain during her menses, that spontaneously resolved years ago who presented following a syncopal episode at home precipitated by lower abdominal discomfort with prodromal symptoms of feeling "hot" with associated weakness, diaphoresis, etc. most c/w a vasovagal etiology which sounds similar to what she experienced in the past. Recommendations: * Agree with telemetry to assess for any dysrhythmias, heart block, etc., follow -up electrocardiograms, follow-up troponins. * An echocardiogram would be reasonable to exclude any left ventricular outflow tract obstruction, although her history is most consistent with neurocardiogenic syncope. * Would be appropriate to evaluate her lower abdominal discomfort so the further similar episodes do not occur. * Check free T4, TSH, & glycosylated hemoglobin A1c. * DVT prophylaxis. Consult Acknowledgment - Thank you for your consult request.
== END 2017-11-21 15:06 | DRG 312 ==
LOC: ERH 13:25 → ERHI 17:33 → ENRESERV 18:41 → ENTRNSPT 20:26 → EDTRNSPTSTS 20:29 → 1NO 20:47 → CMPTRNSPT 20:50 → ENPENDDIS 11-21 14:28 → 1NO 11-21 15:06
PROVIDERS: Emergency Medicine; Internal Medicine Interventional Cardiology
DX: R55 Syncope and collapse (principal); E78.5 Hyperlipidemia, unspecified; E89.0 Postprocedural hypothyroidism; I10 Essential (primary) hypertension; K57.30 Diverticulosis of large intestine without perforation or abscess without bleeding; Z90.89 Acquired absence of other organs; Z85.3 Personal history of malignant neoplasm of breast; Z91.041 Radiographic dye allergy status
CPT/HCPCS: 1NSP; 36592; 71045; 74176; 82436; 93005; 93010; 99291; J1650

== ENCOUNTER 2018-01-22 02:17 | Emergency (ER) | payer OTHER ==
[~2018-01-22 02:17] MED LIST: AMLODIPINE BESYL5 M1 PO; LEVOTHYROXINE50 MCG PO; LISINOPRIL20 M1 PO
[2018-01-22 02:27] VITALS: BP 132/82
--- NOTE | 2018-01-22 03:18 | ED UPPER/LOWER EXTREMITY COMPL ---
History of Present Illness General Chief Complaint: Fall Stated Complaint: S/P FALL AT WORK Source: patient Exam Limitations: no limitations Vital Signs & Intake/Output Vital Signs & Intake/Output Vital Signs Date Time Temp Pulse Resp B/P B/P Pulse O2 O2 Flow FiO2 Mean Ox Delivery Rate 01/22 227 96.8 94 18 132/82 97 Room Air 01/23 224 Room Air Allergies Coded Allergies: Iodinated Contrast- Oral and IV Dye (Severe, VOMITING 01/22/18) Reconcile Medications Amlodipine Besylate 5 MG TABLET 1 TAB PO DAILY HEART (Reported) Ibuprofen 600 MG TABLET 1 TAB PO Q6P PRN PAIN with food Levothyroxine Sodium 50 MCG TABLET 1 TAB PO DAILY AC THYROID (Reported) Lisinopril 20 MG TABLET 1 TAB PO DAILY HEART (Reported) Triage Note: TRIAGE: PATIENT TO ROOM 6 S/P FALL IN POD 1 WHILE WORKING. PATIENT DENIES DIZZINESS AT TIME OF FALL, STATES "TRIPPED." PATIENT NOW +L SHOULDER PAIN, DENIES OTHER INJURIES. PATIENT FELL FACE DOWN ON FLOOR IN POD 1 AND WAS IMMDEIATLEY ASSESSED BY MODEL BUILDER DISPLAY AND MD CASEY. DENIES HITTING HEAD, -LOC, -BLOODTHINNERS. Triage Nurses Notes Reviewed? yes Onset: Abrupt Duration: minute(s):, constant, continues in ED, getting worse Timing: single episode today Severity: moderate Pain/Injury Location: Bilateral: Shoulder. Method of Injury: fall Modifying Factors: Worsens With: movement. HPI: Patient presents for evaluation of injury sustained status post fall just prior to arrival. Patient states that she was walking down the hallway of the emergency department when she caught her foot on the newly polished floors. Patient fell landing primarily on the left side. She denies loss of consciousness or head strike. She complains of bilateral shoulder pain left greater than right that worsens with movement. The pain is a sharp achy pain. In addition she is also complaining of pain in the area of the left trapezius. Past History Travel History Traveled to [place] past 21 day No Medical History Any Pertinent Medical History? see below for history Neurological: NONE EENT: NONE Cardiovascular: hypertension, hyperlipidemia Respiratory: NONE Gastrointestinal: NONE Hepatic: NONE Renal: NONE Musculoskeletal: NONE Psychiatric: NONE Endocrine: hypothyroidism Blood Disorders: NONE Cancer(s): breast cancer PRODUCE WRAPPER/Reproductive: fibroid History of MRSA: No History of VRE: No History of CDIFF: No Surgical History Surgical History: LEFT BREAST CA BROKEN ELBOW BROKEN SHOULDER partial thyroidectomies x 2 Psychosocial History Who do you live with Spouse Services at Home None What is your primary language Yoruba Tobacco Use: Quit >30 days ago Family History Hx Contributory? No Review of Systems Review of Systems Constitutional: Reports: no symptoms. EENTM: Reports: no symptoms. Respiratory: Reports: no symptoms. Cardiovascular: Reports: no symptoms. Gastrointestinal/Abdominal: Reports: no symptoms. Genitourinary: Reports: no symptoms. Musculoskeletal: Reports: see HPI. Skin: Reports: no symptoms. Neurological/Psychological: Reports: no symptoms. Hematologic/Endocrine: Reports: no symptoms. Immunological: Reports: no symptoms. All Other Systems: Reviewed and Negative Physical Exam Physical Exam General Appearance: SEE BELOW Comments: Gen.: Well-nourished, well-developed, no acute respiratory distress. Head: Normocephalic, atraumatic. Nontender. Eyes: Normal inspection bilaterally Ears: Normal inspection bilaterally Nose: Normal inspection Throat/mouth : Moist mucosa Neck: Supple, full range of motion, no goiter, nontender except over the left trapezius Heart: Regular rate and rhythm Lungs: Quiet respirations Back: Normal range of motion Extremities: Right shoulder: Mild pain with range of motion, no ecchymoses or soft tissue swelling or tenderness. The right upper chimneys neurovascular intact. Left shoulder: Pain with range of motion and tenderness of the posterior humeral head, no ecchymoses or soft tissue swelling. The left upper extremity is neurovascular intact distally. Neurologic: Cranial nerves grossly intact, speech is clear Skin: warm and dry Psychiatric: Calm, cooperative, no apparent delusions or hallucinations Progress Differential Diagnosis: contusion, dislocation, fracture, sprain Plan of Care: Orders Procedure Date/time Status Durable Medical Equipment 01/22 0352 Active Current Medications Sig/Mike Start time Last Medication Dose Stop Time Status Admin Ibuprofen 600 MG ONCE ONE 01/23 400 UNVr (Motrin) 01/22 401 Diagnostic Imaging: Discussed w/RAD: Radiology Read. Radiology Impression: PATIENT: MIRIAM JOHNSON PRESENT AGE: 77 PATIENT ACCOUNT NO: [id number] : 39 LOCATION: [facility] ORDERING PHYSICIAN: Arvind Casey MD SERVICE DATE: 01/22/18 EXAM TYPE: RAD - XRY-SHOULDER COMPLETE-LEFT EXAMINATION: XR SHOULDER, LEFT CLINICAL INFORMATION: Fall, pain COMPARISON: None TECHNIQUE: Three views of the left shoulder. FINDINGS: Glenohumeral alignment is anatomic. No acute fracture is seen. There is moderate degenerative change at the glenohumeral joint with joint space narrowing and humeral head spurring. There is also moderate degenerative change at the acromioclavicular joint without widening. Osteopenia is noted. IMPRESSION : No acute findings identified. Degenerative changes. DICTATED BY: Joe Hernandez MD DATE/TIME DICTATED:01/22/18330 OBJECT ORIENTED PROGRAMMER:MÓNICA DATE/TIME TRANSCRIBED:01/22/18330 CONFIDENTIAL, DO NOT COPY WITHOUT APPROPRIATE AUTHORIZATION. <Electronically signed in Other Vendor System> SIGNED BY: Joe Hernandez MD 01/22/18337 Departure Departure Disposition: HOME OR SELF CARE Condition: Stable Clinical Impression Primary Impression: Sprain of left shoulder Qualifiers: Encounter type: initial encounter Shoulder sprain type: unspecified sprain Qualified Code: S43.402A - Unspecified sprain of left shoulder joint, initial encounter Secondary Impressions: Sprain of right shoulder Qualifiers: Encounter type: initial encounter Shoulder sprain type: unspecified sprain Qualified Code: S43.401A - Unspecified sprain of right shoulder joint, initial encounter Strain of left trapezius muscle Qualifiers: Encounter type: initial encounter Qualified Code: S46.812A - Strain of other muscles, fascia and tendons at shoulder and upper arm level, left arm, initial encounter Referrals: Angela BRUSH,Prateek Vega (PCP/Family) Additional Instructions: Rest, no exertion or heavy lifting. Ibuprofen 400 mg every 6 hours as needed for pain. Ice to any areas of swelling. Follow-up with your primary care physician if not improving over the next 7-10 days. Return if any concerns or sudden worsening. Please note that there might be incidental findings in your evaluation that are unrelated to the current emergency department visit. Please notify your primary care doctor about this emergency department visit in order to obtain and review all of the testing performed so that these incidental findings can be monitored as needed. If you had an x-ray performed, please understand that some fractures or other findings may not be seen on the initial set of x-rays. If your symptoms persist you might need a repeat set of x-rays to check for such a fracture. If you're unable to follow up as outlined in the discharge instructions please return to the emergency department. Thank you for choosing the [facility] for your care. It was a pleasure to serve you today. Arvind Casey M.D. [facility] Departure Forms: Customer Survey [employer] Employee Acc Report General Discharge Information Prescriptions: Current Visit Scripts Ibuprofen 1 TAB PO Q6P PRN PAIN #21 TAB with food
--- NOTE | 2018-01-22 03:38 | RADIOLOGY REPORT ---
EXAMINATION: XR SHOULDER, LEFT CLINICAL INFORMATION: Fall, pain COMPARISON: None TECHNIQUE: Three views of the left shoulder. FINDINGS: Glenohumeral alignment is anatomic. No acute fracture is seen. There is moderate degenerative change at the glenohumeral joint with joint space narrowing and humeral head spurring. There is also moderate degenerative change at the acromioclavicular joint without widening. Osteopenia is noted. IMPRESSION: No acute findings identified. Degenerative changes.
[2018-01-22] MEDS ORDERED: IBUPROFEN600 M1 PO (03:51)
== END 2018-01-22 04:10 ==
LOC: ERH 02:17
DX: S43.402A Unspecified sprain of left shoulder joint, initial encounter (principal); S43.401A Unspecified sprain of right shoulder joint, initial encounter; S16.1XXA Strain of muscle, fascia and tendon at neck level, initial encounter; W01.0XXA Fall on same level from slipping, tripping and stumbling without subsequent striking against object, initial encounter; Y93.01 Activity, walking, marching and hiking; Y92.238 Other place in hospital as the place of occurrence of the external cause
CPT/HCPCS: 73030-LT